=== PATIENT | female | born 1990 | race Caucasian/White ===

== ENCOUNTER 2017-08-19 09:45 | Observation (INO) | payer MEDICAID ==
[~2017-08-19 09:45] MED LIST: PREN-94
[2017-08-19] MEDS ORDERED: BETAMETHASONE ACET (6MG/ML) 5ML VIAL IM ONE (10:15)
== END 2017-08-19 10:35 | disposition home or self-care (01) | DRG 563 ==
LOC: LDRP 09:45
PROVIDERS: ADMIT Obstetrics & Gynecology; ATTEND Obstetrics & Gynecology
DX: O60.03 Preterm labor without delivery, third trimester (principal); Z3A.31 31 weeks gestation of pregnancy
CPT/HCPCS: 59025; 81002; G0378; J0702; 96372

== ENCOUNTER 2017-08-20 13:10 | Observation (INO) | payer MEDICAID ==
[~2017-08-20] VITALS: Ht 160 cm; Wt 67.1 kg
[2017-08-20] MEDS ORDERED: BETAMETHASONE ACET (6MG/ML) 5ML VIAL IM SCH (14:00)
== END 2017-08-20 14:30 | disposition home or self-care (01) | DRG 563 ==
LOC: LDRP 13:10
PROVIDERS: ADMIT Specialist; ATTEND Specialist
DX: O60.03 Preterm labor without delivery, third trimester (principal); Z3A.31 31 weeks gestation of pregnancy
CPT/HCPCS: 59025; 81002; 96372; G0378

== ENCOUNTER 2017-08-26 09:45 | Observation (INO) | payer MEDICAID | END 2017-08-26 10:32 | disposition home or self-care (01) | DRG 563 | LOC: LDRP 09:45 | PROVIDERS: ADMIT Specialist; ATTEND Specialist | DX: O60.03 Preterm labor without delivery, third trimester (principal); Z3A.32 32 weeks gestation of pregnancy | CPT/HCPCS: 59025; 81002; G0378 ==

== ENCOUNTER 2017-09-24 21:42 | Observation (INO) | payer MEDICAID | END 2017-09-24 23:46 | disposition home or self-care (01) | DRG 566 | LOC: LDRP 21:42 | PROVIDERS: ADMIT Obstetrics & Gynecology; ATTEND Obstetrics & Gynecology | DX: O62.9 Abnormality of forces of labor, unspecified (principal); O26.893 Other specified pregnancy related conditions, third trimester; R10.9 Unspecified abdominal pain; O99.89 Other specified diseases and conditions complicating pregnancy, childbirth and the puerperium; M54.9 Dorsalgia, unspecified; Z3A.37 37 weeks gestation of pregnancy | CPT/HCPCS: 59025; 81002; G0378 ==

== ENCOUNTER 2017-09-26 22:40 | Observation (INO) | payer MEDICAID ==
[2017-09-26] MEDS ORDERED: LACTATED RINGER'S 1,000 ML IV SCH (23:55)
[2017-09-26] MEDS ORDERED: LACTATED RINGER'S 1,000 ML IV ONE (23:55)
[2017-09-27] MEDS ORDERED: ONDANSETRON HCL 4 MG/2 ML VIAL IV PRN
[2017-09-27] MEDS ORDERED: ONDANSETRON HCL 4 MG/2 ML VIAL ONE (00:19)
== END 2017-09-27 01:15 | disposition home or self-care (01) | DRG 566 ==
LOC: LDRP 22:40
PROVIDERS: ADMIT Specialist; ATTEND Specialist
DX: O26.893 Other specified pregnancy related conditions, third trimester (principal); N89.8 Other specified noninflammatory disorders of vagina; O62.9 Abnormality of forces of labor, unspecified; R51 Headache; O21.2 Late vomiting of pregnancy; Z3A.37 37 weeks gestation of pregnancy
CPT/HCPCS: 59025; 76815; 81002; G0378; J2405

== ENCOUNTER 2017-10-02 22:23 | Inpatient (IN) | payer MEDICAID ==
[~2017-10-02] VITALS: Ht 160 cm; Wt 69.4 kg
[2017-10-02] MEDS ORDERED: LACT. RINGERS/OXYTOCIN 20UNITS 1,000 ML IV SCH (22:52)
[2017-10-02] MEDS ORDERED: LACTATED RINGER'S 1,000 ML IV SCH (22:52)
[2017-10-02] MEDS ORDERED: PHISODERM TOP SOLN 240ML BTL TOP PRN (23:00)
[2017-10-02] MEDS ORDERED: WITCH HAZEL-GLYCERIN PAD TOP PRN (23:00)
[2017-10-02] MEDS ORDERED: LIDOCAINE 2% (LOCAL ANESTH.) PF 5ml SDV ID ONE (23:00)
[2017-10-02] MEDS ORDERED: NALBUPHINE HCL 10 MG/1ml INJECTION IV PRN (23:00)
[2017-10-02] MEDS ORDERED: METHYLERGONOVINE MALEATE 0.2 MG/ML AMP IM PRN (23:00)
[2017-10-02] MEDS ORDERED: DERMOPLAST 60ML BOTTLE TOP PRN (23:00)
[2017-10-02 23:41] LABS: Basophils # (auto) 0 uL; Basophils % (auto) 0.3 % (0.0-2.0); Eosinophils # (auto) 0.1 uL; Eosinophils % (auto) 0.5 % (0.0-7.0); Hematocrit 32.7 % (36.0-46.0); Hemoglobin 10.9 g/dL (12.2-16.2); Lymphocytes # (auto) 2.5 uL; Lymphocytes % (auto) 17.3 % (10.0-50.0); Mean Corpuscular Hemoglobin 30.7 pg (28.0-32.0); Mean Corpuscular Hgb Conc. 33.4 g/dL (32.0-36.0); Mean Corpuscular Volume 92.1 fL (80.0-100.0); Monocytes # (auto) 1.2 uL; Monocytes % (auto) 8.1 % (0.0-12.0); Neutrophils # (auto) 10.6 uL; Neutrophils % (auto) 73.8 % (37.0-80.0); Nucleated Red Blood Cells % 0.1 %; Platelet Count (auto) 276 10^3/uL (140-450); Red Blood Cells 3.54 10^6/uL (4.0-5.20); Red Cell Distribution Width 13.1 % (11.8-14.3); White Blood Cell 14.3 10^3/uL (4.4-10.8)
[2017-10-02] MEDS ORDERED: NALBUPHINE HCL 10 MG/1ml INJECTION ONE (23:41)
[2017-10-02] MEDS ORDERED: PROMETHAZINE HCL 25 MG/ML 1ML ONE (23:41)
[2017-10-02] MEDS ORDERED: PROMETHAZINE HCL 25 MG/ML 1ML IM ONE (23:45)
[2017-10-02 23:52] LABS: Albumin 2.6 g/dL (3.4-5.0); BUN/Creatinine Ratio 11.4; Calcium 8.4 mg/dL (8.5-10.1); Potassium 3.6 mmol/L (3.5-5.1)
[2017-10-02 23:55] LABS: Bilirubin, Total 0.4 mg/dL (0.2-1.0); Total Protein 6.5 g/dL (6.4-8.2)
[2017-10-02 23:57] LABS: INR 0.88 (0.9-1.15); Partial Thromboplastin Time 23.9 sec (23.78-33.04); Prothrombin Time 9.5 sec (9.27-12.13)
[2017-10-03 00:29] LABS: Urine Bacteria NONE SEEN /hpf (None Seen); Urine Blood 3+ /uL (Negative); Urine WBC 1876 /hpf (0 - 5)
[2017-10-03 00:30] LABS: Urine Specific Gravity 1.018 (1.001-1.035)
[2017-10-03] MEDS ORDERED: fentaNYL CITRATE 100 MCG/2 ML VL IV ONE ×2 (00:30→01:45)
[2017-10-03] MEDS ORDERED: LIDOCAINE HCL 2 %PF INJ 10ML AMP IJ ONE (00:30)
[2017-10-03] MEDS ORDERED: fentaNYL W ROPIVACAINE 150 ML EPI SCH ×2 (00:30→01:45)
[2017-10-03] MEDS ORDERED: NALOXONE HCL 0.4 MG/ML VIAL IV ONE ×2 (00:30→01:45)
[2017-10-03] MEDS ORDERED: ePHEDrine SULFATE 50 MG/ML AMP IV ONE ×2 (00:30→01:45)
[2017-10-03 00:37] LABS: Alcohol, Urine < 3.0 mg/dL (0-5); Amphetamine Screen, Urine NEGATIVE (NEGATIVE); Barbiturate Scree,Urine NEGATIVE (NEGATIVE); Benzodiazephine Screen, Urine NEGATIVE (NEGATIVE); Cannabinoid Screen, Urine NEGATIVE (NEGATIVE); Cocaine Screen, Urine NEGATIVE (NEGATIVE); Opiate Scree,Urine NEGATIVE (NEGATIVE); Phencyclidine Screen, Urine NEGATIVE (NEGATIVE)
[2017-10-03] MEDS ORDERED: fentaNYL CITRATE 100 MCG/2 ML VL ONE (00:46)
[2017-10-03] MEDS ORDERED: NALOXONE HCL 0.4 MG/ML VIAL ONE (00:47)
[2017-10-03] MEDS ORDERED: ePHEDrine SULFATE 50 MG/ML AMP ONE (00:47)
[2017-10-03] MEDS ORDERED: fentaNYL W ROPIVACAINE 150 ML EPI ONE (00:48)
[2017-10-03] MEDS ORDERED: SODIUM CHLORIDE 0.9% 500 ML IV PRN (01:44)
[2017-10-03] MEDS ORDERED: ACETAMINOPHEN 325 MG TAB PO PRN (04:00)
[2017-10-03] MEDS: IBUPROFEN 600 MG TAB PO PRN ×4 (04:40→22:48)
[2017-10-03 07:00] VITALS: BP 103/62
[2017-10-03] MEDS: HYDROcodone-ACET 5/325MG TAB PO PRN ×4 (09:11→23:39)
[2017-10-03 11:19] VITALS: BP 114/69
[2017-10-03 15:00] VITALS: BP 110/73
[2017-10-03 23:35] VITALS: BP 107/59
[2017-10-04 04:06] LABS: RPR Non Reactive (Non Reactive)
[2017-10-04 07:00] VITALS: BP 105/57
[2017-10-04] MEDS: HYDROcodone-ACET 5/325MG TAB PO PRN ×4 (07:40→23:42)
[2017-10-04 08:06] LABS: Rubella Antibodies, IgG 1.27 index (Immune >0.99)
[2017-10-04] MEDS: IBUPROFEN 600 MG TAB PO PRN ×2 (09:48→16:02)
[2017-10-04 11:06] VITALS: BP 105/65
[2017-10-04 14:45] VITALS: BP 115/62
[2017-10-04 18:53] VITALS: BP 112/79
[2017-10-04 23:00] VITALS: BP 116/78
[2017-10-05 03:00] VITALS: BP 104/60
[2017-10-05] MEDS: IBUPROFEN 600 MG TAB PO PRN ×4 (03:23→23:12)
[2017-10-05 06:46] VITALS: BP 112/51
[2017-10-05] MEDS: HYDROcodone-ACET 5/325MG TAB PO PRN (09:22)
[2017-10-05 11:00] VITALS: BP 102/67
[2017-10-05 15:22] VITALS: BP 111/61
[2017-10-05 23:00] VITALS: BP 103/57
[2017-10-06 05:30] VITALS: BP 99/56
[2017-10-06 07:00] VITALS: BP 121/73
[2017-10-06] MEDS: HYDROcodone-ACET 5/325MG TAB PO PRN (09:40)
[2017-10-06 11:00] VITALS: BP 100/56
[2017-10-06 15:00] VITALS: BP 134/88
== END 2017-10-06 12:55 | disposition home or self-care (01) | DRG 560 ==
LOC: OBSVTOIN 22:23 → LDRP 22:23
PROVIDERS: ADMIT Obstetrics & Gynecology; ATTEND Obstetrics & Gynecology
PROC: 10E0XZZ Delivery of Products of Conception, External Approach (ICD-10-PCS; principal; 2017-10-03)
PROC: 3E0R3BZ Introduction of Anesthetic Agent into Spinal Canal, Percutaneous Approach (ICD-10-PCS; 2017-10-03)
PROC: 00HU33Z Insertion of Infusion Device into Spinal Canal, Percutaneous Approach (ICD-10-PCS; 2017-10-03)
DX: O99.52 Diseases of the respiratory system complicating childbirth (principal); J45.909 Unspecified asthma, uncomplicated; O42.02 Full-term premature rupture of membranes, onset of labor within 24 hours of rupture; Z37.0 Single live birth; Z3A.38 38 weeks gestation of pregnancy
CPT/HCPCS: 36415; 59025; 59409; 62282; 72195; 74018; 76815; 76856; 80053; 80307; 81001; 81002; 85025; 85610; 85730; 86592; 86762; 86850; 86900; 86901; 94760; 96365; 96366; 96372; 96374; 96375; 97163; J2001; J2590; J3010

== ENCOUNTER 2018-06-18 16:25 | Emergency (ER) | payer MEDICAID ==
[~2018-06-18] VITALS: Ht 160 cm; Wt 61.7 kg
[2018-06-18 20:37] LABS: Urine Bacteria NONE SEEN /hpf (None Seen); Urine Blood Negative /uL (Negative); Urine Specific Gravity 1.007 (1.001-1.035); Urine WBC <1 /hpf (0 - 5)
[2018-06-18 22:14] LABS: Basophils # (auto) 0 uL; Basophils % (auto) 0.5 % (0.0-2.0); Eosinophils # (auto) 0 uL; Eosinophils % (auto) 0.3 % (0.0-7.0); Hematocrit 41.3 % (36.0-46.0); Hemoglobin 13.5 g/dL (12.2-16.2); Lymphocytes # (auto) 1.5 uL; Lymphocytes % (auto) 20.3 % (10.0-50.0); Mean Corpuscular Hgb Conc. 32.7 g/dL (32.0-36.0); Mean Corpuscular Volume 88.8 fL (80.0-100.0); Monocytes # (auto) 0.6 uL; Monocytes % (auto) 7.9 % (0.0-12.0); Neutrophils # (auto) 5.1 uL; Platelet Count (auto) 345 10^3/uL (140-450); Red Blood Cells 4.65 10^6/uL (4.0-5.20); Red Cell Distribution Width 15.8 % (11.8-14.3); White Blood Cell 7.2 10^3/uL (4.4-10.8)
[2018-06-18 22:49] LABS: Alanine Aminotransferase 25 U/L (13-56); Albumin 4.5 g/dL (3.4-5.0); Anion Gap 8 (5-15); Aspartate Aminotransferase 19 U/L (15-37); Blood Urea Nitrogen 8 mg/dL (7-18); Calcium 8.9 mg/dL (8.5-10.1); Carbon Dioxide 25 mmol/L (21-32); Chloride 109 mmol/L (98-107); Glucose 94 mg/dL (74-106); Potassium 3.9 mmol/L (3.5-5.1); Sodium 142 mmol/L (136-145)
[2018-06-18 22:54] LABS: Alkaline Phosphatase 58 U/L (45-117); BUN/Creatinine Ratio 11.1; Bilirubin, Total 0.3 mg/dL (0.2-1.0); GFR African American 125 mL/min; GFR Non-African American 103 mL/min; Total Protein 8.1 g/dL (6.4-8.2)
[2018-06-19] MEDS ORDERED: SODIUM CHLORIDE 0.9% 1,000 ML IV ONE (00:07)
[2018-06-19] MEDS ORDERED: MORPHINE SULFATE 4 MG/ML SYR/VIAL IV ONE (00:15)
[2018-06-19] MEDS ORDERED: MAGNESIUM CITRATE SOLUTION 300 ML BTL PO ONE (00:15)
[2018-06-19] MEDS ORDERED: ONDANSETRON HCL 4 MG/2 ML VIAL IV ONE (00:15)
[2018-06-19] MEDS ORDERED: MORPHINE SULF INJ 2 MG/ML SYRINGE 1ML IV ONE (03:15)
[2018-06-19 05:57] VITALS: BP 93/53
== END 2018-06-19 06:09 | disposition home or self-care (01) ==
LOC: ER 16:25
DX: N93.8 Other specified abnormal uterine and vaginal bleeding (principal); R19.7 Diarrhea, unspecified; J45.909 Unspecified asthma, uncomplicated; Z88.5 Allergy status to narcotic agent; Z88.0 Allergy status to penicillin; Z79.899 Other long term (current) drug therapy
CPT/HCPCS: 36415; 74176; 76830; 76856; 80053; 81001; 81025; 84484; 84702; 85025; 94761; 96361; 96374; 96375; 96376; 99284; J2270; J2405; J7030